=== PATIENT | male | born 1980 | race Two or more races ===

== ENCOUNTER 2018-04-23 20:36 | Inpatient (IN) | payer BC ==
[~2018-04-23] VITALS: Ht 167.6 cm; Wt 109.8 kg
[2018-04-23] MEDS ORDERED: KETOROLAC 60MG/2ML VIAL IM STA (23:03)
[2018-04-23] MEDS ORDERED: SODIUM CHLORIDE 0.9% 1,000 ML IV ONE ×2 (23:07)
[2018-04-23] MEDS ORDERED: KETOROLAC 30MG/ML VIAL IV STA (23:07)
[2018-04-24 00:48] LABS: BASOPHILS % 0.4 % (0.0-2.0); EOSINOPHILS % 0.3 % (0.0-5.0); HEMATOCRIT. 49.8 % (42.0-52.0); HEMOGLOBIN. 16.6 g/dL (14.0-18.0); LYMPHOCYTES % 16.7 % (20.0-50.0); MEAN CORPUSCULAR HEMOGLOBIN 29.9 pg (28.0-32.0); MEAN CORPUSCULAR VOLUME 89.6 fL (80.0-94.0); MEAN PLATELET VOLUME 10.5 fl (7.4-10.4); MONOCYTES % 7.8 % (2.0-8.0); NEUTROPHILS % 74.8 % (40.0-76.0); PLATELET 215 x1000/uL (130-400); RED BLOOD CELL COUNT 5.56 mill/uL (4.7-6.1); RED CELL DISTRIBUTION WIDTH 12.5 % (11.6-14.6)
[2018-04-24 00:53] LABS: CHLORIDE 102 mEq/L (98-107)
[2018-04-24 00:55] LABS: PROTHROMBIN TIME 10.3 sec (9.1-11.1)
[2018-04-24] MEDS ORDERED: LOSARTAN POTASSIUM 50 MG TABLET PO NR (01:00)
[2018-04-24] MEDS ORDERED: PIPERACILLIN/TAZ 3.375G PREMIX 50 ML IV NR (01:15)
[2018-04-24] MEDS ORDERED: VANCOMYCIN 1 G PREMIX 200 ML IV NR (01:15)
[2018-04-24] MEDS ORDERED: SODIUM CHLORIDE 0.9% 1,000 ML IV ONE (01:40)
[2018-04-24] MEDS ORDERED: IBUPROFEN 600MG TABLET PO PRN (01:45)
[2018-04-24] MEDS ORDERED: MORPHINE SULFATE 4 MG/ML CPJ (NOT FOR IM USE) IV STA (05:29)
[2018-04-24] MEDS ORDERED: NA PHOS,M-B/NA PHOS,DI-BA ENEMA 118ML PR PRN (09:45)
[2018-04-24] MEDS ORDERED: DIPHENHYDRAMINE 50MG/ML VIAL IV PRN (09:45)
[2018-04-24] MEDS ORDERED: ONDANSETRON HCL 4MG/2ML INJ IV PRN (09:45)
[2018-04-24] MEDS ORDERED: MAGNESIUM/ALUMINUM HYDROXIDE/SIMETHICONE 30ML UDC PO PRN (09:45)
[2018-04-24] MEDS ORDERED: VANCOMYCIN 1 G PREMIX 200 ML IV SCH (09:45)
[2018-04-24] MEDS ORDERED: LORAZEPAM 2MG/ML CPJ IV PRN (09:45)
[2018-04-24] MEDS ORDERED: CLONIDINE 0.1MG TABLET PO PRN (09:45)
[2018-04-24] MEDS ORDERED: GUAIFENESIN 200MG/10ML SUGAR FREE UDC PO PRN (09:45)
[2018-04-24] MEDS ORDERED: IPRATROPIUM/ALBUTEROL 0.5-3(2.5)MG/3ML NEB INH PRN (09:45)
[2018-04-24] MEDS ORDERED: HYDRALAZINE 20MG/ML VIAL IV PRN (09:45)
[2018-04-24] MEDS ORDERED: DOCUSATE SODIUM 100MG CAPSULE PO PRN (09:45)
[2018-04-24] MEDS ORDERED: HYDROCODONE/ACETAMINOPHEN 10/325MG TABLET PO PRN (09:45)
[2018-04-24] MEDS ORDERED: DEXTROSE 50% WATER 50ML SYRINGE IV PRN (09:45)
[2018-04-24] MEDS ORDERED: ACETAMINOPHEN 325MG TABLET PO PRN (09:45)
[2018-04-24] MEDS: BLOOD SUGAR DIAGNOSTIC STRIP TEST SCH ×3 (10:24→21:35)
[2018-04-24] MEDS ORDERED: HYDRALAZINE 20MG/ML VIAL IV NR (10:25)
[2018-04-24] MEDS: INSULIN LISPRO 100 UNITS/ML SUBCUT SCH ×4 (11:23→21:43)
[2018-04-24] MEDS ORDERED: LIDOCAINE HCL/EPINEPHRINE 1%-EPI 1:100,000 20 ML VIAL INFIL NR (12:35)
[2018-04-24] MEDS ORDERED: HYDRALAZINE 10 MG in SODIUM CHLORIDE 0.9% 49.5 ML IV PRN (12:45)
[2018-04-24] MEDS ORDERED: LIDOCAINE HCL 1% 20ML VIAL (Pyxis) INJ INFIL NR (12:47)
[2018-04-24 13:30] VITALS: BP 156/91
[2018-04-24 14:00] VITALS: BP 156/91
[2018-04-24] MEDS: HYDROMORPHONE HCL/PF 2MG/ML CPJ IV PRN ×2 (14:05→18:29)
[2018-04-24] MEDS: PIPERACILLIN/TAZ 3.375G PREMIX 50 ML IV SCH ×2 (15:00→21:55)
[2018-04-24] MEDS: VANCOMYCIN 1 G PREMIX 200 ML IV SCH (15:10)
[2018-04-24 16:00] VITALS: BP 198/109
[2018-04-24] MEDS: SODIUM CHLORIDE 0.9% INJ 3ML FLUSH IVF SCH ×2 (16:11→21:53)
[2018-04-24 17:07] LABS: CREATINE KINASE 54 IU/L (39-308)
[2018-04-24 17:08] LABS: CREATINE KINASE MB FRACTION < 1.0 ng/mL (0.5-3.6)
[2018-04-24 18:00] VITALS: BP 163/90
[2018-04-24 20:00] VITALS: BP 142/78
[2018-04-24] MEDS ORDERED: ENOXAPARIN 30MG/0.3ML SYR SUBCUT SCH (21:00)
[2018-04-25] VITALS: BP 141/88
[2018-04-25] MEDS: VANCOMYCIN 1 G PREMIX 200 ML IV SCH ×2 (00:06→08:00)
[2018-04-25 04:00] VITALS: BP 149/81
[2018-04-25] MEDS: PIPERACILLIN/TAZ 3.375G PREMIX 50 ML IV SCH (05:06)
[2018-04-25] MEDS: SODIUM CHLORIDE 0.9% INJ 3ML FLUSH IVF SCH (05:06)
[2018-04-25] MEDS: BLOOD SUGAR DIAGNOSTIC STRIP TEST SCH (06:42)
[2018-04-25 06:53] LABS: BASOPHILS % 0.4 % (0.0-2.0); EOSINOPHILS % 0.4 % (0.0-5.0); HEMATOCRIT. 42.6 % (42.0-52.0); HEMOGLOBIN. 14.1 g/dL (14.0-18.0); LYMPHOCYTES % 18.5 % (20.0-50.0); MEAN CORPUSCULAR HEMOGLOBIN 29.5 pg (28.0-32.0); MEAN CORPUSCULAR VOLUME 89.4 fL (80.0-94.0); MEAN PLATELET VOLUME 10.2 fl (7.4-10.4); MONOCYTES % 12.5 % (2.0-8.0); NEUTROPHILS % 68.2 % (40.0-76.0); PLATELET 216 x1000/uL (130-400); RED BLOOD CELL COUNT 4.76 mill/uL (4.7-6.1); RED CELL DISTRIBUTION WIDTH 12.9 % (11.6-14.6)
[2018-04-25 07:26] LABS: CLARITY URINE CLEAR (CLEAR); COLOR URINE YELLOW (YELLOW); KETONES URINE 3+ (NEGATIVE); LEUKOCYTE ESTERASE URINE NEGATIVE (NEGATIVE); NITRITE URINE NEGATIVE (NEGATIVE); OCCULT BLOOD URINE NEGATIVE (NEGATIVE); PROTEIN URINE TRACE (NEGATIVE); SPECIFIC GRAVITY URINE 1.045 (1.005-1.030); UROBILINOGEN URINE 0.2 E.U./dL (0.2-1.0)
[2018-04-25 07:37] LABS: CHLORIDE 104 mEq/L (98-107)
[2018-04-25 07:44] LABS: LDL CHOLESTEROL 112 mg/dL (5-100)
[2018-04-25 07:45] LABS: CREATINE KINASE 41 IU/L (39-308); HDL CHOLESTEROL 25 mg/dL (40-59)
[2018-04-25 07:51] LABS: CREATINE KINASE MB FRACTION < 1.0 ng/mL (0.5-3.6)
[2018-04-25 08:00] VITALS: BP 151/92
[2018-04-25] MEDS ORDERED: ASPIRIN 81MG EC TABLET PO SCH (09:00)
[2018-04-25] MEDS: INSULIN LISPRO 100 UNITS/ML SUBCUT SCH (09:09)
[2018-04-25 11:37] VITALS: BP 157/89
[2018-04-25 12:00] VITALS: BP 157/92
[2018-04-25] MEDS ORDERED: INFLUENZA VIRUS VACCINE(AFLURIA) 0.5ML SYR IM ONE (13:00)
== END 2018-04-25 13:25 | disposition home or self-care (01) | DRG 580 ==
LOC: ER 20:56 → 6EST 04-24 01:40 → ENRESERV 04-24 09:51
PROVIDERS: ADMIT Internal Medicine; ATTEND Internal Medicine
PROC: 0Y950ZZ Drainage of Right Inguinal Region, Open Approach (ICD-10-PCS; principal; 2018-04-24)
DX: L02.214 Cutaneous abscess of groin (principal); R65.10 Systemic inflammatory response syndrome (SIRS) of non-infectious origin without acute organ dysfunction; I10 Essential (primary) hypertension; F17.210 Nicotine dependence, cigarettes, uncomplicated; E11.65 Type 2 diabetes mellitus with hyperglycemia
CPT/HCPCS: 36415; 71045; 72192; 80061; 80202; 82550; 82553; 82962; 84484; 87106; 90686; 93005; 96365; 99285; J0360; J1170; J1650; J1815; J1885; J2270; J2405; J2543; J3370; J3490; J7030; J7040